=== PATIENT | female | born 1990 | race Caucasian/White ===

== ENCOUNTER 2021-10-29 07:49 | Emergency (ER) | payer OTHER ==
[~2021-10-29] VITALS: Ht 160 cm; Wt 60.0 kg
[2021-10-29 08:01] VITALS: BP 124/75
[2021-10-29] MEDS ORDERED: TOPUD PO (08:20)
[2021-10-29] MEDS ORDERED: TOPUD MT (08:20)
[2021-10-29] MEDS ORDERED: NIRM1TAB PO (08:20)
[2021-10-29] MEDS ORDERED: ALBU6.7H9 INH ×2 (22:44→23:01)
[2021-10-29] MEDS ORDERED: METO-293 MT ×2 (22:44→23:01)
== END 2021-10-29 08:33 | disposition home or self-care (01) ==
LOC: ER 07:49
DX: U07.1 COVID-19 (principal)
CPT/HCPCS: 99281; 99283

== ENCOUNTER 2021-10-29 19:08 | Emergency (ER) | payer OTHER ==
[~2021-10-29] VITALS: Ht 162.6 cm; Wt 59.0 kg
[~2021-10-29 19:08] MED LIST: NIRM1TAB PO; TOPUD MT; TOPUD PO
[2021-10-29] MEDS ORDERED: ALBU6.7H9 INH ×2 (22:44→23:01)
[2021-10-29] MEDS ORDERED: METO-293 MT ×2 (22:44→23:01)
[2021-10-29] MEDS ORDERED: METOCLOPRAMIDE HCL 10MG TABLET PO ONE (22:45)
[2021-10-29] MEDS ORDERED: ACETAMINOPHEN 325MG TABLET PO ONE (22:45)
[2021-10-29 23:10] VITALS: BP 106/57
== END 2021-10-29 23:11 | disposition home or self-care (01) ==
LOC: ER 19:08
DX: U07.1 COVID-19 (principal); B34.9 Viral infection, unspecified; Z79.899 Other long term (current) drug therapy
CPT/HCPCS: 99283; J8597